=== PATIENT | male | born 1950 | race Caucasian/White ===

== ENCOUNTER 2017-01-13 04:56 | Emergency (ER) | payer BC, OTHER, SELFPAY ==
[~2017-01-13] VITALS: Ht 175.3 cm; Wt 156.8 kg
[2017-01-13 05:52] VITALS: BP 170/78
[2017-01-13] MEDS ORDERED: MECLIZINE CHEWABLE 25 MG TAB ONE (05:53)
[2017-01-13] MEDS ORDERED: MECLIZINE CHEWABLE 25 MG TAB PO ONE (06:00)
[2017-01-13 06:18] LABS: HEMOGLOBIN 13.9 g/dL (13.7-18.0)
[2017-01-13 06:20] LABS: BLOOD UREA NITROGEN 24 mg/dL (7-18)
[2017-01-13] MEDS ORDERED: ONDANSETRON ODT 8 MG PO ONE (07:00)
== END 2017-01-13 08:24 | disposition home or self-care (01) ==
LOC: ED 07:38
DX: H81.10 Benign paroxysmal vertigo, unspecified ear (principal); R05 Cough; Z95.1 Presence of aortocoronary bypass graft
CPT/HCPCS: 36415; 80048; 82040; 85025; 93005

== ENCOUNTER 2017-12-04 07:26 | Emergency (ER) | payer BC, MEDICARE ==
[~2017-12-04] VITALS: Ht 175.3 cm; Wt 134.4 kg
[2017-12-04 07:28] VITALS: BP 168/93
[2017-12-04] MEDS ORDERED: HYDROcodone/APAP 5/325 TABLET ONE (08:04)
[2017-12-04] MEDS ORDERED: KETOROLAC 30 MG/1 ML ONE (08:04)
[2017-12-04] MEDS ORDERED: HYDROcodone/APAP 5/325 TABLET PO ONE (08:30)
[2017-12-04] MEDS ORDERED: KETOROLAC 30 MG/1 ML IM ONE (08:30)
== END 2017-12-04 09:45 | disposition home or self-care (01) ==
LOC: ED 09:40
DX: J20.8 Acute bronchitis due to other specified organisms (principal); B96.89 Other specified bacterial agents as the cause of diseases classified elsewhere; M51.36 Other intervertebral disc degeneration, lumbar region; M54.31 Sciatica, right side; I10 Essential (primary) hypertension; G89.29 Other chronic pain; Z95.1 Presence of aortocoronary bypass graft
CPT/HCPCS: 71046; 73502; 96372; 99284; J1885

== ENCOUNTER 2017-12-12 08:53 | Emergency (ER) | payer BC ==
[~2017-12-12] VITALS: Ht 175.3 cm; Wt 139.5 kg
[2017-12-12] MEDS ORDERED: HYDROcodone/APAP 10/325 MG TABLET PO ONE (10:00)
[2017-12-12] MEDS ORDERED: HYDROcodone/APAP 10/325 MG TABLET ONE (10:01)
[2017-12-12 10:43] VITALS: BP 137/85
== END 2017-12-12 10:45 | disposition home or self-care (01) ==
LOC: ED 10:15
DX: M51.16 Intervertebral disc disorders with radiculopathy, lumbar region (principal); I10 Essential (primary) hypertension; I25.10 Atherosclerotic heart disease of native coronary artery without angina pectoris; Z95.1 Presence of aortocoronary bypass graft
CPT/HCPCS: 99283

== ENCOUNTER 2018-02-09 07:11 | Inpatient (IN) | payer BC ==
[~2018-02-09] VITALS: Ht 175.3 cm; Wt 123.0 kg
[2018-02-09] MEDS ORDERED: ONDANSETRON ODT 4 MG PO ONE (08:00)
[2018-02-09] MEDS ORDERED: SODIUM CHLORIDE 0.9% 1,000ML IVBOLUS ONE ×2 (08:00→09:30)
[2018-02-09] MEDS ORDERED: SODIUM CHLORIDE FLUSH 10ML SYR IVF ONE (08:00)
[2018-02-09 08:29] LABS: ALBUMIN 3.1 g/dL (3.4-5.0); ANION GAP 14 mmol/L (5-15); CALCIUM 8.9 mg/dL (8.5-10.1); CHLORIDE 99 mmol/L (98-107); CREATININE 2.58 mg/dL (0.7-1.3)
[2018-02-09 08:33] LABS: TROPONIN I 0.023 ng/mL (0.000-0.045)
[2018-02-09] MEDS ORDERED: DIAZ2TAB3 PO (08:41)
[2018-02-09] MEDS ORDERED: TAMS0.4C2 PO (08:41)
[2018-02-09] MEDS ORDERED: METO25TA35 PO (08:41)
[2018-02-09] MEDS ORDERED: OXYC-302 PO (08:41)
[2018-02-09] MEDS ORDERED: ONDA8TAB12 PO (08:41)
[2018-02-09] MEDS ORDERED: ONDANSETRON ODT 4 MG ONE (08:45)
[2018-02-09 09:14] LABS: BASOPHILS # (AUTO) 0.06 x10^3/uL (0-0.1); BASOPHILS % (AUTO) 1 % (0-1); EOSINOPHILS % (AUTO) 2 % (1-7); LYMPHOCYTES # (AUTO) 1.73 x10^3/uL (1-3.4); LYMPHOCYTES % (AUTO) 14 % (22-44); MD NO; MEAN CORPUSCULAR HEMOGLOBIN 26.3 pg (27.5-34.5); MEAN CORPUSCULAR HGB CONC 32.1 g/dL (33.2-36.2); MEAN CORPUSCULAR VOLUME 81.9 fL (81-97); MEAN PLATELET VOLUME 9.7 fL (7.4-10.4); MONOCYTES # (AUTO) 0.74 x10^3/uL (0.2-0.8); MONOCYTES % (AUTO) 6 % (2-9); NEUTROPHILS # (AUTO) 9.55 x10^3/uL (1.8-6.8); NEUTROPHILS % (AUTO) 77 % (42-75); PLATELET COUNT 277 x10^3/uL (130-400); RED BLOOD COUNT 4.96 x10^6/uL (4.38-5.82); RED CELL DISTRIBUTION WIDTH 17.5 % (9.4-14.8)
[2018-02-09] MEDS ORDERED: HYDROcodone/APAP 5/325 TABLET PO ONE (10:00)
[2018-02-09 10:58] VITALS: BP 135/78
[2018-02-09 12:59] VITALS: BP 131/74
[2018-02-09] MEDS ORDERED: DOCUSATE 100 MG CAPSULE PO PRN (13:00)
[2018-02-09] MEDS ORDERED: PROMETHAZINE 25 MG/ML, 1ML IM PRN (13:00)
[2018-02-09] MEDS ORDERED: ACETAMINOPHEN 325 MG TABLET PO PRN (13:00)
[2018-02-09] MEDS ORDERED: hydrALAzine 20 MG/ML, 1ML IVPush PRN (13:00)
[2018-02-09] MEDS ORDERED: BISACODYL 10 MG SUPP PR PRN (13:00)
[2018-02-09] MEDS ORDERED: ONDANSETRON ODT 4 MG PO PRN (13:00)
[2018-02-09] MEDS ORDERED: LABETALOL 5MG/ML, 20ML IVPush PRN (13:00)
[2018-02-09] MEDS ORDERED: POLYETHYLENE GLYCOL 17 GM PACKET PO PRN (13:00)
[2018-02-09] MEDS ORDERED: ONDANSETRON ODT 8 MG PO PRN (14:00)
[2018-02-09] MEDS ORDERED: POTASSIUM CHLORIDE 20 MEQ TAB.ER.PRT PO ONE (14:00)
[2018-02-09 14:48] LABS: FREE T4 (FREE THYROXINE) 1.51 ng/dL (0.76-1.46); THYROID STIMULATING HORMONE 0.925 mIU/L (0.358-3.740)
[2018-02-09 14:51] LABS: HEMOGLOBIN A1C 5.1 % (4.2-6.3)
[2018-02-09] MEDS: HEPARIN 5,000 UNITS/ML, 1ML SQ SCH ×2 (15:54→22:53)
[2018-02-09] MEDS: SODIUM CHLORIDE 0.9% 1,000 ML IV SCH ×2 (15:54→22:54)
[2018-02-09 20:00] VITALS: BP 118/72
[2018-02-09] MEDS: METOPROLOL TARTRATE 25 MG TABLET PO SCH (22:52)
[2018-02-09 23:28] LABS: CULTURE INDICATED? YES; MICROSCOPIC INDICATED
[2018-02-10 02:00] VITALS: BP 125/79
[2018-02-10 05:26] LABS: BASOPHILS # (AUTO) 0.06 x10^3/uL (0-0.1); BASOPHILS % (AUTO) 1 % (0-1); EOSINOPHILS # (AUTO) 0.42 x10^3/uL (0-0.4); EOSINOPHILS % (AUTO) 7 % (1-7); LYMPHOCYTES % (AUTO) 30 % (22-44); MD NO; MEAN CORPUSCULAR HEMOGLOBIN 26.5 pg (27.5-34.5); MEAN CORPUSCULAR VOLUME 82.8 fL (81-97); MEAN PLATELET VOLUME 9.3 fL (7.4-10.4); MONOCYTES # (AUTO) 0.39 x10^3/uL (0.2-0.8); MONOCYTES % (AUTO) 6 % (2-9); NEUTROPHILS % (AUTO) 56 % (42-75); PLATELET COUNT 209 x10^3/uL (130-400); RED BLOOD COUNT 4.13 x10^6/uL (4.38-5.82); RED CELL DISTRIBUTION WIDTH 17.2 % (9.4-14.8)
[2018-02-10 05:29] LABS: CHLORIDE 107 mmol/L (98-107)
[2018-02-10 05:40] LABS: ALANINE AMINOTRANSFERASE 12 U/L (12-78); ALBUMIN 2.5 g/dL (3.4-5.0); ALKALINE PHOSPHATASE 79 U/L (45-117); ANION GAP 10 mmol/L (5-15); BILIRUBIN,TOTAL 0.8 mg/dL (0.2-1.0); CALCIUM 7.9 mg/dL (8.5-10.1); CHOL/HDL RATIO 5.7; CHOLESTEROL, TOTAL 131 mg/dL (140-239); CREATININE 1.99 mg/dL (0.7-1.3); HDL CHOL % 18 % (26-37); HDL CHOLESTEROL (DIRECT) 23 mg/dL (40-60); LDL CHOLESTEROL,CALCULATED 84 mg/dL (54-169); LDL/HDL RATIO 3.7 (0.5-3.0); TOTAL PROTEIN 5.9 g/dL (6.4-8.2); TRIGLYCERIDES 120 mg/dL (50-200); VLDL CHOLESTEROL 24 mg/dL (0-25)
[2018-02-10] MEDS: SODIUM CHLORIDE 0.9% 1,000 ML IV SCH (06:00)
[2018-02-10] MEDS: HEPARIN 5,000 UNITS/ML, 1ML SQ SCH ×3 (06:00→20:56)
[2018-02-10 07:32] VITALS: BP 114/71
[2018-02-10] MEDS ORDERED: FLUMAZENIL 0.1 MG/1 ML, 5ML ONE ×2 (08:15→12:39)
[2018-02-10] MEDS ORDERED: MIDAZOLAM 1 MG/ML, 5ML ONE ×3 (08:15→12:39)
[2018-02-10] MEDS ORDERED: FENTANYL PF 100 MCG/2ML ONE ×3 (08:15→12:38)
[2018-02-10] MEDS ORDERED: NALOXONE 1 MG/ML, 2ML ONE ×2 (08:15→12:39)
[2018-02-10] MEDS: TAMSULOSIN 0.4 MG CAP.ER.24H PO SCH (10:26)
[2018-02-10] MEDS: METOPROLOL TARTRATE 25 MG TABLET PO SCH ×2 (10:28→20:56)
[2018-02-10] MEDS: CEFTRIAXONE PMX 1GM/50ML 50 ML IV SCH (10:29)
[2018-02-10 13:56] VITALS: BP 118/75
[2018-02-10] MEDS ORDERED: POTASSIUM CHLORIDE 20 MEQ TAB.ER.PRT PO ONE (14:00)
[2018-02-10] MEDS ORDERED: ONDANSETRON ODT 8 MG PO PRN ×2 (14:33→14:34)
[2018-02-10] MEDS ORDERED: ONDANSETRON ODT 4 MG PO PRN (14:34)
[2018-02-10] MEDS: COLCHICINE 0.6 MG TABLET PO SCH (15:29)
[2018-02-10 20:05] VITALS: BP 112/57
[2018-02-11 01:32] VITALS: BP 94/57
[2018-02-11] MEDS: HEPARIN 5,000 UNITS/ML, 1ML SQ SCH ×2 (05:00→09:10)
[2018-02-11 05:08] LABS: BASOPHILS # (AUTO) 0.04 x10^3/uL (0-0.1); BASOPHILS % (AUTO) 1 % (0-1); EOSINOPHILS # (AUTO) 0.38 x10^3/uL (0-0.4); EOSINOPHILS % (AUTO) 6 % (1-7); LYMPHOCYTES % (AUTO) 29 % (22-44); MD NO; MEAN CORPUSCULAR HEMOGLOBIN 27.1 pg (27.5-34.5); MEAN CORPUSCULAR HGB CONC 32.6 g/dL (33.2-36.2); MEAN CORPUSCULAR VOLUME 83.2 fL (81-97); MEAN PLATELET VOLUME 8.9 fL (7.4-10.4); MONOCYTES # (AUTO) 0.37 x10^3/uL (0.2-0.8); MONOCYTES % (AUTO) 6 % (2-9); NEUTROPHILS # (AUTO) 3.39 x10^3/uL (1.8-6.8); NEUTROPHILS % (AUTO) 58 % (42-75); PLATELET COUNT 200 x10^3/uL (130-400); RED BLOOD COUNT 3.88 x10^6/uL (4.38-5.82); RED CELL DISTRIBUTION WIDTH 17.1 % (9.4-14.8)
[2018-02-11 05:21] LABS: ANION GAP 6 mmol/L (5-15); CALCIUM 8.7 mg/dL (8.5-10.1); CHLORIDE 110 mmol/L (98-107); CREATININE 1.78 mg/dL (0.7-1.3)
[2018-02-11 07:04] VITALS: BP 117/73
[2018-02-11] MEDS: METOPROLOL TARTRATE 25 MG TABLET PO SCH (09:00)
[2018-02-11] MEDS: COLCHICINE 0.6 MG TABLET PO SCH (09:09)
[2018-02-11] MEDS: CEFTRIAXONE PMX 1GM/50ML 50 ML IV SCH (09:09)
[2018-02-11] MEDS: TAMSULOSIN 0.4 MG CAP.ER.24H PO SCH (09:10)
[2018-02-11 13:51] VITALS: BP 112/54
[2018-02-11] MEDS ORDERED: COLC0.6T37 PO (14:24)
[2018-02-11] MEDS ORDERED: CIPR500T3 PO (14:24)
[2018-02-11] MEDS ORDERED: METO25TA35 PO (14:24)
[2018-02-11] MEDS ORDERED: LISI5TAB7 PO (14:24)
[2018-02-11] MEDS ORDERED: LISINOPRIL 5 MG TABLET PO SCH (14:30)
[2018-02-11] MEDS ORDERED: CIPROFLOXACIN 500 MG TABLET PO SCH (14:30)
[2018-02-11] MEDS ORDERED: METOPROLOL TARTRATE 25 MG TABLET PO SCH (21:00)
== END 2018-02-11 17:49 | disposition home or self-care (01) | DRG 682 ==
LOC: ED 09:11 → EDIP 09:39 → 4WST 10:39
PROVIDERS: ADMIT Internal Medicine Pulmonary Disease; ATTEND Internal Medicine Pulmonary Disease
DX: N17.0 Acute kidney failure with tubular necrosis (principal); I50.41 Acute combined systolic (congestive) and diastolic (congestive) heart failure; E87.2 Acidosis; E44.0 Moderate protein-calorie malnutrition; I13.0 Hypertensive heart and chronic kidney disease with heart failure and stage 1 through stage 4 chronic kidney disease, or unspecified chronic kidney disease; N39.0 Urinary tract infection, site not specified; E86.0 Dehydration; B96.89 Other specified bacterial agents as the cause of diseases classified elsewhere; M48.061 Spinal stenosis, lumbar region without neurogenic claudication; E87.6 Hypokalemia; I25.10 Atherosclerotic heart disease of native coronary artery without angina pectoris; I35.1 Nonrheumatic aortic (valve) insufficiency; M10.9 Gout, unspecified; N18.9 Chronic kidney disease, unspecified; R32 Unspecified urinary incontinence; N40.1 Benign prostatic hyperplasia with lower urinary tract symptoms; Z95.1 Presence of aortocoronary bypass graft; Z79.899 Other long term (current) drug therapy; Z79.2 Long term (current) use of antibiotics
CPT/HCPCS: 36415; 70450; 70551; 71045; 80048; 80053; 80061; 81001; 82040; 83036; 83605; 83735; 84439; 84443; 84484; 85025; 86850; 86900; 87040; 87077; 87086; 87186; 93005; 93306; 93880; 96360; 99156; J0696; J1644; J2250; J3010; Q0162; J2310; J7030